=== PATIENT | female | born 1980 | race Caucasian/White ===

== ENCOUNTER 2022-07-15 17:54 | Emergency (ER) | payer MEDICAID ==
[~2022-07-15] VITALS: Ht 149.9 cm; Wt 70.3 kg
--- NOTE | 2022-07-15 19:05 | NUR ---
[id number] from home, c/o head pain s/p fall, no loc 8/10 pain scale. PT A/OX4. TOLERATING R/A WELL WITH NO RESP DISTRESS. CONNECTED PT TO POX AND MONITOR. SAFTEY MEASURES IN PLACE.
[2022-07-15] MEDS ORDERED: ACETAMINOPHEN ES 500 MG TABLET ONE ×2 (19:27→19:33)
[2022-07-15] MEDS ORDERED: ACETAMINOPHEN ES 500 MG TABLET PO ONE (19:30)
--- NOTE | 2022-07-15 19:34 | NUR ---
PT SIGNED PREGANCY WAIVER FORM; VERBALIZED UNDERSTANDING
--- NOTE | 2022-07-15 20:21 | NUR ---
PT RETURNED TO ER BED [address]
--- NOTE | 2022-07-15 21:59 | NUR ---
Patient discharged to home in stable condition. Written and verbal after care instructions given. Patient verbalizes understanding of instruction.
[2022-07-15 22:02] VITALS: BP 114/56
== END 2022-07-15 22:02 | disposition home or self-care (01) ==
LOC: ER 17:57
DX: R51.9 Headache, unspecified (principal); M54.2 Cervicalgia; W01.0XXA Fall on same level from slipping, tripping and stumbling without subsequent striking against object, initial encounter; Y93.89 Activity, other specified; Y92.89 Other specified places as the place of occurrence of the external cause; Y99.8 Other external cause status
CPT/HCPCS: 70450-TC; 72125-TC; 72170-TC